=== PATIENT | female | born 1990 | race Caucasian/White ===

== ENCOUNTER → 2018-06-20 12:21 | Outpatient (CLI) | payer BC, SELFPAY ==
[2018-06-20 13:28] LABS: Basophils % 0.2 % (0.1-2.0); Eosinophils # 0.1 K/mm3 (0.0-0.4); Eosinophils % 0.9 % (0.1-12.0); Hematocrit 38.8 % (37.0-47.0); Hemoglobin 12.9 g/dL (12.2-16.2); Lymphocytes # 2.2 K/mm3 (0.7-4.5); Lymphocytes % 20.1 K/mm3 (10-50); Mean Corpuscular HGB Conc 33.2 g/dL (31.8-35.4); Mean Corpuscular Hemoglobin 30.1 pg (27.0-31.2); Mean Corpuscular Volume 90.8 fl (81-99); Mean Platelet Volume 8.2 fl (7.4-10.4); Monocytes # 0.5 K/mm3 (0.1-1.0); Monocytes % 4.1 % (1.7-9.3); Neutrophils # 8.3 K/mm3 (1.8-7.8); Neutrophils % 74.7 % (37.0-80.0); Platelet Count 339 K/mm3 (142-424); Red Blood Count 4.27 M/mm3 (4.20-5.40); Red Cell Distribution Width 13.3 % (11.5-17.5); White Blood Count 11.2 K/mm3 (4.8-10.8)
[2018-06-21 09:16] LABS: Rapid Plasma Reagin Ab Titer Non Reactive (NonRea<1:1)
[2018-06-23 05:30] LABS: HIV Screen 4th Generation wRfx Non Reactive (Non Reactive); Hepatitis B Surface Antigen Negative (Negative); Hepatitis C Antibody 0.1 s/co ratio (0.0-0.9); Rubella Antibodies, IgG 1.81 index (Immune >0.99)
== END ==
PROVIDERS: PCP Family Medicine; Visit Provider Obstetrics & Gynecology
DX: Z34.90 Encounter for supervision of normal pregnancy, unspecified, unspecified trimester (principal)
CPT/HCPCS: 36415; 85025; 86592; 86703; 86762; 86850; 87340; 87380; G0432

== ENCOUNTER → 2018-07-25 12:28 | Outpatient (CLI) | payer BC, SELFPAY ==
--- NOTE | 2018-07-25 12:30 | US_ITS ---
US OB /maternal detail: INDICATION: ITS.REASON: US OB Complete ORDERING PHYSICIAN: Faye Sheets MD PATIENT AGE: 28 years TECHNIQUE: ultrasound transabdominal scanning. COMPARISON: No previous relevant studies. FINDINGS: Single viable intrauterine gestation. Breach position. Placenta: Posterior placenta grade 1. There is normal amount fluid. The cervix appears satisfactory. Closed and measuring 2.59-3.2 in length. Complete survey performed and was unremarkable on the submitted images as in PACS. No discrete anomalies identified on survey imaging by technologist. Active fetus. Three-vessel cord with satisfactory umbilical cord insertion. 4- chamber heart noted. Survey of brain & ventricles. Face and neck survey unremarkable. Diaphragm and chest views unremarkable. Abdomen: Both kidneys noted and unremarkable. Stomach noted and satisfactory. Spine: Survey of the spine satisfactory with no anomalies identified nor imaged. Both arms and legs noted. Amniotic Fluid: Adequate. Maternal adnexa: No significant findings. Measurements: Average ultrasound age 20 weeks and 2 days. Gestational Age 20 weeks 0 days. Estimated due date by ultrasound age 212/12/2018. Estimated weight 353 +/- 52 g grams. BPD = 4.69 centimeters equaling 20 weeks 2 days OFD = 5.95 m equaling 20 weeks 3 days HC = 16.83 cm equaling 19 weeks 4 days AC = 15.33 cm equaling 20 weeks 4 days FL = 3.37 cm equaling 20 weeks 4 days Growth Percentile= Heart Rate = 132 BPM Cerebellum = 1.99 cm equaling 20 weeks and 2 days Humerus = 3.27 cm equaling 21 weeks 1 day HC/AC is 1.10. CI is 79%. FL/BPD is 72%. FL/AC is 22%. IMPRESSION: Active viable breach fetus with details and dates as noted above
== END ==
PROVIDERS: PCP Family Medicine; Visit Provider Obstetrics & Gynecology
DX: Z36.0 Encounter for antenatal screening for chromosomal anomalies (principal)
CPT/HCPCS: 76811

== ENCOUNTER 2018-09-12 09:45 | Outpatient (CLI) | payer BC, SELFPAY ==
[2018-09-12 11:10] VITALS: BP 125/70; PULSE 68; RESP 20; TEMP 36.9; O2SAT 96
== END 2018-09-12 11:40 | disposition home or self-care (01) ==
LOC: LAB 09:46
PROVIDERS: PCP Family Medicine; Visit Provider Obstetrics & Gynecology
DX: Z34.90 Encounter for supervision of normal pregnancy, unspecified, unspecified trimester (principal)
CPT/HCPCS: 36415; 96372; J2790

== ENCOUNTER → 2018-10-09 15:01 | Outpatient (CLI) | payer BC, SELFPAY | PROVIDERS: Visit Provider Obstetrics & Gynecology | DX: Z34.90 Encounter for supervision of normal pregnancy, unspecified, unspecified trimester (principal) | CPT/HCPCS: 87086 ==

== ENCOUNTER → 2018-11-05 14:36 | Outpatient (CLI) | payer BC, SELFPAY ==
--- NOTE | 2018-11-05 14:39 | US_ITS ---
US OB BPP w/Fet-Mat S/D: INDICATION: L G A... Large for gestational age ITS.REASON: US OB BPP Growth SD Ratio ORDERING PHYSICIAN: Faye Sheets MD PATIENT AGE: 28 years TECHNIQUE: ultrasound transabdominal scanning.-/ mw COMPARISON: Ultrasound 07/25/2018.... At which time average ultrasound age 20 weeks 2 days FINDINGS: Single viable intrauterine gestation. Cephalic position.. Placenta. Posterior placenta.grade 1 no previa. The cervix difficult to visualize with low-lying head but appears satisfactory closed & measuring 3.6 cm in length... Appreciated, limited survey performed. Unremarkable on the submitted images as in PACS. & No discrete anomalies identified on survey imaging by technologist. Active fetus.Three-vessel cord with satisfactory umbilical cord insertion. Survey of brain & ventricles & posterior fossa unremarkable Only limited Face and neck survey imaging, unremarkable Diaphragm and chest views unremarkable. 4- chamber heart imaged. Cine loop included. Abdomen: Both kidneys noted and unremarkable. Stomach noted and satisfactory. Spine: Survey of the spine satisfactory with no anomalies identified nor imaged. Both arms and legs noted. Appears to be a Male Fetus Amniotic Fluid: Adequate. Maternal adnexa: No significant findings encountered. Measurements: Average ultrasound age 35 weeks 2 days 34 weeks 5 days. Gestational Age based on LMP 03/07/2018.. Estimated due date by ultrasound age 112/08/2018. Estimated weight 2640 g +/- 386 g grams LMP growth. Percentile 63% (3-97%) BPD = 35 weeks 0 day OFD = 39 week 0 day HC = 35 week 6 day AC = 35 week 6 day FL = 34 week 2 day NOTE when compared to the previous 20 week scan.. The trend curve of the BPD, FL, EFW, AC all appear satisfactory. Graphavailable in PACS... Satisfactory growth progression Heart Rate = 129 BPM. CORTEZ = 12.69. Largest fluid pocket right lower quadrant 3.72 cm. ====== BIOPHYSICAL PROFILE 8 of possible 8 points. +2 scored each category.: Breathing; movement;, Tone,; Amniotic Fluid volume Active fetus with movement and breathing, clearly evident ====== SD RATIO = 2.5 RI = 0.6 HC/AC = 1.0.(1.09-1.26.) CI = 76%.(70-86%). FL/BPD is 77%. WNL FL/AC is 21%. (20-24% The growth progression graphs in PACS are available it appears sac satisfactory with fetus growth remaining near the median. Thesegraphs in include plot of BPD, EFW, FL & AC. Overall satisfactory progress of growth.. IMPRESSION: 35 weeks 2 days average ultrasound age Cephalic position. Placenta is posterior grade 1. No previa Satisfactory growth progression ((when compared to the 20 week 2 day scan performed 07/25/2018) Biophysical profile: 8 of possible 8 points. SD ratio 2.5. CORTEZ 12.89 .. Today's Anatomical survey of unremarkable/satisfactory. Also note There seems to be appropriate in satisfactory progression of growth since the previous ultrasound at 20 weeks 2 days
== END ==
PROVIDERS: PCP Family Medicine; Visit Provider Obstetrics & Gynecology
DX: O99.331 Smoking (tobacco) complicating pregnancy, first trimester (principal); Z87.59 Personal history of other complications of pregnancy, childbirth and the puerperium
CPT/HCPCS: 76811; 76819; 76820

== ENCOUNTER 2018-11-14 01:45 | Outpatient (CLI) | payer BC, SELFPAY ==
[2018-11-14 01:58] VITALS: BMI 42.6
[2018-11-14 02:14] VITALS: BMI 42.6
[2018-11-14 02:15] VITALS: BP 138/65; PULSE 77; RESP 18; TEMP 36.6; O2SAT 95; BMI 42.6
[2018-11-14 02:36] LABS: Appearance,Urine CLEAR (Clear); Bilirubin,Urine Negative (Negative); Blood, Urine 1+ (Negative); Color,Urine YELLOW (Yellow); Glucose,Urine (UA) Negative (Negative); Ketones,Urine Negative (Negative); Leukocyte Esterase,Urine 2+ (Negative); Microscopic, Urine URINE MICROSCOPIC (MICROSCOPIC); Nitrate,Urine Negative (Negative); Protein,Urine 1+ (Negative); Specific Gravity, Urine 1.025 (1.005-1.030); Urobilinogen,Urine 0.2 EU/dl (0.2)
[2018-11-14 02:42] LABS: Fetal Membrane Rupture (Rapid) Negative (Negative)
[2018-11-14 02:45] LABS: Amphetamine/Metha Screen,Urine Negative ng/mL (<1000); Barbiturates Screen,Urine Negative ng/mL (<200); Benzodiazepines Screen,Urine Negative ng/mL (<200); Cannabinoid Screen,Urine Negative ng/mL (<50); Cocaine Screen,Urine Negative ng/mL (<300); Methadone Screen,Urine Negative ng/mL (<300); Opiate Screen,Urine Negative ng/mL (<300); Phencyclidine Screen,Urine Negative ng/mL (<25)
[2018-11-14 02:47] LABS: Bacteria,Urine 1+ /lpf
== END 2018-11-14 03:05 | disposition home or self-care (01) ==
LOC: OBOUT 01:47 → OB 01:48
PROVIDERS: Visit Provider Obstetrics & Gynecology
DX: O26.893 Other specified pregnancy related conditions, third trimester (principal); Z3A.36 36 weeks gestation of pregnancy
CPT/HCPCS: 59025; 80305; 81001; 84112; 87086

== ENCOUNTER 2018-11-14 11:35 | Inpatient (IN) ==
--- NOTE | 2018-11-14 13:01 | History & Physical Report ---
OB - H&P: HPI Antepartum - History of Present Illness Chief complaint: Spontaneous rupture of membranes History of present illness: She is a 28-year-old 3 para 1 aborta 1 who is 36 weeks gestational age. She was seen in the middle the night with what was thought to be her membranes but her aunt was negative. Since that time she has been having leakage and on examination here she is grossly ruptured. Nonstress test is reactive. She is having an occasional correction. She is 2 cm dilated 50% Station -2. She has had a previous vaginal delivery at months with a stillborn infant. - History of Present Criteria for establishing EDC:: LMP confirmed by 1st trimester US care: good care Ultrasounds: normal 1st trimester US, normal mid trimester US Obstetrical complications: none Medical complications: none [facility] History I have reviewed the patient's past medical history: Yes Medical History: Denies:: Anxiety, Depression, Diabetes Mellitus Type 1 Other Surgeries: No: Amputation: No Fractures: No - *Social History Smoking Status: Current some day smoker Tobacco Type: cigarettes # Packs/Day (cigarettes): 1 Alcohol Intake: never Substance Use Type: marijuana Occupational Status: unemployed Housing: apartment Household Members: significant other - Psychiatric History Pschychiatric History:: Denies:: Anxiety, Depression *Family Hx:: No significant family history Review of Systems - Review of Systems Review of systems:: pertinent systems reviewed and negative unless documented below Meds Home Medications Medication Instructions Recorded Confirmed Type 1 tab PO QHS #30 tab 05/12/18 10/23/18 Rx vitamin,calcium,mjojwryf-tjxf-lpkhe acid tablet nitrofurantoin 100 mg PO BID 5 Days #10 cap 11/14/18 Rx monohydrate/macrocrystals 100 mg capsule Allergies Allergy/AdvReac Type Severity Reaction Status Date / Time No Known Allergies Allergy Verified 10/23/18 10:18 OB - H&P: Exam - Constitutional no acute distress - Routine HEENT Exam Head: Present: normocephalic Eye: Present: EOMI, PERRL ENT: Present: mucous membranes moist - Routine Neck Exam Present: supple, full ROM - Routine Respiratory Exam Absent: accessory muscle use (good air entry bilaterally), respiratory distress, wheezes, crackles - Routine Cardiovascular Exam Present: RRR. Absent: murmur - Routine Abdominal Exam Present: soft, normoactive bowel sounds. Absent: tenderness, distended, guarding - Routine Rectal Exam Patient deferred: visual exam, digital exam - Routine Exam Patient deferred: external exam, groin exam, perineal exam - Routine Extremities Exam Present: full ROM. Absent: cyanosis, edema - Routine Skin Exam Present: intact. Absent: cyanosis - Routine Neurological Exam Present: alert, oriented X3 - Routine Psychiatric Exam Present: normal affect OB - A/P Antepartum (1) premature rupture of membranes Current visit: Yes Status: Acute - Additional Plan Planning to breastfeed?: Yes Plan: induction Additional Information:: She is 36 weeks gestation age spontaneous rupture of membranes. We will go ahead and start IV antibiotics since she has not had group B strep testing. We will admit her and deliver her.
[2018-11-14 13:21] LABS: Basophils % 0.2 % (0.1-2.0); Eosinophils # 0.3 K/mm3 (0.0-0.4); Eosinophils % 1.8 % (0.1-12.0); Hematocrit 38.2 % (37.0-47.0); Hemoglobin 12.6 g/dL (12.2-16.2); Lymphocytes # 2.2 K/mm3 (0.7-4.5); Lymphocytes % 15.2 % (10-50); Mean Corpuscular HGB Conc 33.1 g/dL (31.8-35.4); Mean Corpuscular Hemoglobin 31.4 pg (27.0-31.2); Mean Corpuscular Volume 95.1 fl (81-99); Mean Platelet Volume 7.7 fl (7.4-10.4); Monocytes # 0.6 K/mm3 (0.1-1.0); Monocytes % 4.1 % (1.7-9.3); Neutrophils # 11.2 K/mm3 (1.8-7.8); Neutrophils % 78.8 % (37.0-80.0); Platelet Count 414 K/mm3 (142-424); Red Blood Count 4.02 M/mm3 (4.20-5.40); Red Cell Distribution Width 13.8 % (11.5-17.5); White Blood Count 14.1 K/mm3 (4.8-10.8)
[2018-11-14 14:20] VITALS: BP 127/70
--- NOTE | 2018-11-14 18:22 | Progress Note ---
[facility] Anesthesia Checklist - Patient Identification Patient Identification: Arm Band, Verbal (Name & ) - Structural Data Admitted From: Home Planned Operative Procedure/s: Labor Epidural Consent for Planned Operative Procedure(s) Verified: Yes Verified Documents: Surgical Consent, History and Physical - Chart Verification Results Verified: CBC - Additional verifications Patient : Yes Anesthesia Reactions: No - Airway Assessment C-Spine Mobility Assessed: Yes TMJ Mobility Assessed: Yes Dentition: Good Dentition - Neurological Assessment Level of Consciousness: Awake Hx Seizures: No Numbness or tingling in extremities: No - Anesthesia Plan Anesthesia Risk discussed: Yes Anesthesia Plan: Verified ASA Class: II Anesthesia Type: Epidural [facility] History I have reviewed the patient's past medical history: Yes Medical History: Denies:: Anxiety, Depression, Diabetes Mellitus Type 1 Other Surgeries: No: Amputation: No Fractures: No - *Social History Smoking Status: Current every day smoker (hx of use, not during ) Tobacco Type: cigarettes # Packs/Day (cigarettes): 1 Alcohol Intake: never Substance Use Type: marijuana Occupational Status: unemployed Housing: apartment Household Members: significant other - Psychiatric History Pschychiatric History:: Denies:: Anxiety, Depression *Family Hx:: No significant family history Para: 1
--- NOTE | 2018-11-15 00:41 | Procedure Note ---
- Delivery Note Delivery Date:: 11/15/18 Delivery Time:: 12:00 Anesthesia Type: Epidural Was labor medically induced?: Yes Induction method: per pitocin protocol Gestational age (weeks): 36 delivered prior to 39 weeks?: Yes Justification for early elective delivery:: Premature ROM at 1 minute: 6 at 5 minutes: 9 LAC or MLE?: LAC Delivery Procedure:: Vacuum assisted vaginal delivery of liveborn male over intact perineum. Indication for operative vaginal delivery: ineffective maternal pushing with variable decelerations of fetus with pushing Vacuum applied to vertex at +2 station. Infant delivered in single pull using vacuum in standard fashion. Apgars: 6 & 9 Delivery uncomplicated; no shoulder dystocia with delivery. Nuchal cord x 1 reduced on perineum. Infant placed immediately on maternal abdomen for nursing assessment; taken im mediately to warmer for suction and evaluation after umbilical cord clamped/cut Placenta spontaneously expressed and examined; noted to be complete/intact Vulva, vagina, and cervix inspected; second degree perineal and bilateral farhan- urethral lacerations noted. Repair with 2-0 vicryl. EBL: 300cc All sponge/needle/instrument counts correct at conclusion of procedure Disposition: Mom/baby stable to recovery in LDRP Laceration:: vaginal Placental Delivery Description: Spontaneous
--- NOTE | 2018-11-15 14:34 | Progress Note ---
Internal Medicine - PN: Subj *Date: 11/15/18 *Time: 14:32 Interval history: PPD #0 VAVD No complaints Voiding without difficulty Lochia appropriate Pain control sufficient Exam Vital signs and Labs for Last 24 Hours: Temp Pulse Resp BP Pulse Ox 97.3 F L 77 18 127/70 96 11/14/18 12:23 11/14/18 12:23 11/14/18 12:23 11/14/18 12:23 11/14/18 12:23 Laboratory Results - last 24 hr 11/14/18 13:05: Blood Type O Negative I & O for Last 24 hours: Intake & Output 11/13/18 11/14/18 11/15/18 11/16/18 11:59 11:59 11:59 11:59 Weight 264 lb 0.325 oz Narrative: CONSTITUTIONAL: no acute distress HEENT: mucous membranes moist PULMONARY: breathing unlabored without audible wheezes CV: no tachycardia or visible JVD; normal LE peripheral pulses ABD: soft, NT/ND, no guarding : fundus firm at/below umbilicus SKIN: no visible rash or lesions EXT: 1+ edema LEs NEURO: alert/oriented, no altered mental status PSYCH: appropriate mood and demeanor without visible anxiety/depression Assessment and Plan (1) premature rupture of membranes Current visit: Yes Status: Acute Category: Medical Code(s): O42.919 - premature rupture of membranes, unspecified as to length of time between rupture and onset of labor, unspecified trimester (2) Status post vacuum-assisted vaginal delivery Current visit: Yes Status: Acute Category: Medical Code(s): Z87.59 - Personal history of other complications of , childbirth and the puerperium (3) Tobacco use during Current visit: Yes Status: Acute Category: Medical Code(s): O99.330 - Smoking (tobacco) complicating , unspecified trimester (4) UTI in Problem details: Macrobid 100 BID x 7d Current visit: No Status: Acute Category: Medical Code(s): O23.40 - Unspecified infection of urinary tract in , unspecified trimester - Assessment and plan all Dx Assessment and Plan for all problems:: Routine care Continue Macrobid for UTI Tobacco cessation SW consult +UDS during
[2018-11-16 06:51] LABS: Hematocrit 34.3 % (37.0-47.0); Hemoglobin 11.1 g/dL (12.2-16.2)
--- NOTE | 2018-11-16 14:35 | Discharge Summary ---
General - General Admission date:: 11/14/18 Discharge date: 11/16/18 HPI HPI: admitted with PROM @ 35+ VAVD, uncomplicated Routine course Infant being discharged today pending f/u bilirubin level Lochia appropriate Hospital Course Hospital Course: as documented in HPI Rhogam Administration: Not Indicated Objective Vital signs: Temp Pulse Resp BP Pulse Ox 97.3 F L 77 18 127/70 96 11/14/18 12:23 11/14/18 12:23 11/14/18 12:23 11/14/18 12:23 11/14/18 12:23 Narrative: CONSTITUTIONAL: no acute distress HEENT: mucous membranes moist PULMONARY: breathing unlabored without audible wheezes CV: no tachycardia or visible JVD; normal LE peripheral pulses ABD: soft, NT/ND, no guarding : fundus firm at/below umbilicus SKIN: no visible rash or lesions EXT: 1+ edema LEs NEURO: alert/oriented, no altered mental status PSYCH: appropriate mood and demeanor without visible anxiety/depression Results Labs on day of discharge: Labs from last 24 hours 11/16/18 06:40 Hgb 11.1 L Hct 34.3 L DS: Diagnosis - Discharge Diagnosis (1) premature rupture of membranes Status: Acute (2) Status post vacuum-assisted vaginal delivery Status: Acute (3) Tobacco use during Status: Acute (4) UTI in Status: Acute Problem details: Macrobid 100 BID x 7d Discharge Plan - Patient Discharge Instructions Additional Instructions: No heavy lifting, no strenuous activity, nothing in the vagina for 6 weeks. Patient Instructions: Depression, Hemorrhage, Post Discharge Instructions - Follow up Plan Follow up with: Faye Sheets MD [Staff Physician] - Disposition: Home, Self-Usp Medications: Home Medications Medication Instructions Recorded Confirmed Type 1 tab PO QHS #30 tab 05/12/18 11/15/18 Rx vitamin,calcium,uwqiihei-bgzr-oslgd acid tablet Ibuprofen [Motrin 400mg 800 mg PO Q6HP PRN #30 tablet 11/16/18 Rx tablet] Prescriptions/Medication Reconciliation: New Ibuprofen [Motrin 400mg tablet] 800 mg PO Q6HP PRN #30 tablet PRN Reason: Mild To Moderate Pain Continue vitamin,calcium,ciokinke-tmdh-sntev acid tablet 1 tab PO QHS #30 tab
== END 2018-11-16 18:25 | disposition home or self-care (01) | DRG 807 ==
LOC: OBOUT 11:35 → OB 11:37
PROVIDERS: ADMIT Obstetrics & Gynecology; ATTEND Obstetrics & Gynecology
CPT/HCPCS: J0290

== ENCOUNTER 2022-07-20 19:03 | Emergency (ER) | payer BC, SELFPAY ==
[2022-07-20 19:25] VITALS: BP 122/74; PULSE 99; RESP 18; TEMP 37.8; O2SAT 99; BMI 39.1
--- NOTE | 2022-07-20 19:50 | EXP.UTC ---
Discharge Plan Disposition Patient Disposition: Home, Self-Care Condition: Good Prescriptions Prescriptions: No Action prenat.vits,dominick,txf-dzis-xkfjk [ Vitamin] tablet 1 tab PO QHS Qty: 30 10RF Referrals Follow up/Referrals: Jeremiah Guerra [Primary Care Provider] - See instructions Activity Restrictions/Add. Instructions Additional Instructions/Restrictions: Follow up with Dr Guerra if not improving Clinical Impressions Clinical Impression: Bilateral otitis media, Bronchitis Stand Alone Forms Stand Alone Forms: Work/School Release Discharge ED Provider: Yumiko Gillespie [facility] HPI General Stated complaint: congestion,ST Mode of Arrival: Ambulatory Source of Information: Patient Limitations: No Limitations Time Seen by Provider: 07/20/22 19:50 Description of Symptoms (Recalled from Triage Doc. by RN): pt comes in with c/o congestion, headache, nausea, cough. symptoms have been ongoing for 2 days HEENT Symptoms (Recalled from RN notes): Yes Resp Symptoms (Recalled from RN notes): Yes Skin Symptoms (Recalled from RN notes): No MS Symptoms (Recalled from RN notes): No Functional Status (Recalled from RN notes): n/a History of Present Illness Provider Complaint: Cough, congestion, headache X 10 days. Mild ear pain, sore throat. Cough productive of yellow sputum. Has fever. No vomiting or diarrhea. Onset (ago): day(s) (10) Location: chest Consistency: constant Relieving factors: none Exacerbating factors: none Associated symptoms: cough, fever/chills, headaches and shortness of breath Treatments prior to arrival: none Related Data Previous Rx's Medication Instructions Recorded prenat.vits,dominick,uua-kpqb-rjcpj 1 tab PO QHS #30 tabs 05/12/18 ( Vitamin tablet) Allergies Allergy/AdvReac Type Severity Reaction Status Date / Time No Known Allergies Allergy Verified 07/20/22 19:40 Worker's Comp Is this a Worker's Comp case?: No PFSH PFSH Social History Smoking Status: Former smoker alcohol intake: never substance use type: marijuana current occupational status: unemployed Travel in the last 8 weeks: None household members: significant other housing: apartment current occupational exposures/hazards: No ROS Obtained: Yes All systems reviewed & no additional complaints except as documented Constitutional Constitutional: Reports body ache, Reports chills, Reports fatigue, Reports fever(s) and Reports headache(s) ENT Ears, Nose, Mouth, and Throat: Reports headache(s) Respiratory Respiratory: Reports chest congestion and Reports cough Neurologic Neurologic: Reports headache(s) Endocrine Endocrine: Reports fatigue Physical Exam General General appearance: alert and in no apparent distress Head Head exam: atraumatic, normocephalic and normal inspection Eye Eye exam: Present normal appearance, PERRL and EOMI ENT ENT exam: Present normal exam, normal oropharynx, mucous membranes moist and normal external ear exam Expanded ENT Exam TM/Canal exam: Bilateral TM: erythema and bulging Neck Neck exam: Present normal inspection, full ROM and trachea midline; Absent meningismus or lymphadenopathy Chest Chest inspection: Present normal inspection and symmetric chest wall rise; Absent tenderness Respiratory Respiratory exam: Absent respiratory distress Expanded Respiratory Exam Location: Left: rales and rhonchi, Right: rales and rhonchi, Upper: rales and rhonchi and Lower: rales and rhonchi Cardiovascular Cardiovascular exam: Present regular rate and normal rhythm; Absent JVD Abdominal Exam Abdominal exam: Present soft and normal bowel sounds; Absent distention, tenderness or guarding Extremities Exam Extremities exam: Present normal inspection, full ROM and normal capillary refill; Absent calf tenderness Back Exam Back exam: Present normal inspection; Absent tenderness Neurological Exam Neurological exam: Present al
[2022-07-20 20:24] VITALS: BP 122/74; PULSE 99; RESP 18; TEMP 37.5
== END 2022-07-20 20:28 | disposition home or self-care (01) ==
PROVIDERS: Emergency Provider Physician Assistant; PCP Family Medicine
DX: H66.93 Otitis media, unspecified, bilateral (principal); J02.9 Acute pharyngitis, unspecified; R06.02 Shortness of breath; R11.0 Nausea; R51.9 Headache, unspecified; Z79.899 Other long term (current) drug therapy; Z87.891 Personal history of nicotine dependence
CPT/HCPCS: 96372; 99213; G0463; J0696; J1040

== ENCOUNTER 2024-09-29 18:05 | Observation (INO) | payer BC, SELFPAY ==
[2024-09-29] VITALS (8 sets, daily range): BP systolic 109–152; BP diastolic 67–104; PULSE 72–115; RESP 18–20; TEMP 36.6–37.2; O2SAT 95–98; BMI 45.1
--- NOTE | 2024-09-29 18:10 | ED_ITS ---
Discharge Plan Disposition Patient Disposition: Admitted Condition: Fair Clinical Impressions Clinical Impression: Sepsis without septic shock Discharge ED Provider: Moise Pitt General Adult HPI <ABIOLA Mcpherson - Last Filed: 09/29/24 19:50> General Chief complaint: Upper Respiratory Infection Stated complaint: sore throat, ST Time Seen by Provider: 09/29/24 18:10 History of Present Illness HPI narrative: Patient presents for evaluation of cough malaise myalgia and headache. Patient states that she began having symptoms on Saturday however it is progressed to having a persistent headache persistent malaise that is refractory to home remedies including Tylenol and liquid cough cold medicine. She denies cardiac chest pain shortness of breath dyspnea cough but reports a significant sore throat with difficulty swallowing as it is painful. Related Data Previous Rx's ?Medication ?Instructions ?Recorded prenat.vits,dominick,[id number] 1 tab PO QHS #30 tabs 05/12/18 ( Vitamin tablet) Allergies Allergy/AdvReac Type Severity Reaction Status Date / Time No Known Allergies Allergy Verified 07/20/22 19:40 PFSH <ABIOLA Mcpherson - Last Filed: 09/29/24 19:50> [facility] Disclaimer: The information contained in this section may have been updated after the patient was seen, as this information can be updated by other users. Medical History Bronchitis Bilateral otitis media History of chlamydia Hidradenitis suppurativa Positive urine drug screen History of IUFD Smoking (tobacco) complicating , first trimester Annual physical exam Family History (Updated 09/29/24 @ 22:14 by Yris Roberts RN) Other Brain cancer Family history of cancer Family history of diabetes mellitus type I Family history of myocardial infarction Social History (Updated 09/29/24 @ 22:16 by Yris Roberts RN) Smoking Status: Current every day smoker tobacco type: cigarettes packs per day: 1 alcohol intake: never substance use type: marijuana current occupational status: unemployed Travel in the last 8 weeks: None household members: significant other housing: apartment current occupational exposures/hazards: No Other Medical History Have you received the Flu Vaccine for this season: Yes Have you received the Pneumonia Vaccine: No <ABIOLA Mcpherson - Last Filed: 09/29/24 19:50> ROS Obtained: Yes Systems reviewed as appropriate & no additional complaints except as documented Physical Exam <ABIOLA Mcpherson - Last Filed: 09/29/24 19:50> General General appearance: alert and in no apparent distress Respiratory Respiratory exam: Present normal lung sounds bilaterally Cardiovascular Cardiovascular exam: Present tachycardia Neurological Exam Neurological exam: Present alert and oriented X3 Medical Decision Making <ABIOLA Mcpherson - Last Filed: 09/29/24 19:50> Medical Records Medical records reviewed: Yes I reviewed the patient's medical records. Screening: Per USPSTF and CDC recommendations, given the prevalence of disease in our region, it is our hospital?s policy to screen for HIV and viral Hepatitis for all patients aged 18 and over and those with ongoing risk factors. Jose Inquiry Pt receiving controlled substance: No Vital Signs: 09/29/24 18:07 09/29/24 18:33 09/29/24 19:01 Temperature 99.0 F Temperature Source Oral Pulse Rate 103 H 108 H Pulse Rate [Right] 115 H Respiratory Rate 20 Blood Pressure 139/91 H 112/72 Blood Pressure [Right Arm] 152/104 H Blood Pressure Mean [Right Arm] 120 Blood Pressure Source Blood Pressure Source [Right Arm] Blood Pressure Position 02 Sat by Pulse Oximetry 95 96 96 Oxygen Delivery Method Room Air Room Air Room Air 09/29/24 19:32 09/29/24 20:03 09/29/24 20:15 Temperature 98.9 F Temperature Source Oral Pulse Rate 104 H 111 H Pulse Rate [Right] 93 H Respiratory Rate 20 Blood Pressure 115/75 109/67 L Blood Pressure [Right Arm] 115/79 Blood Pressure Mean [Right Arm] 91 Blood Pressure Source Blood Pressure Source [Right Arm] Automatic Cuff Blood Pressure Position 02 Sat by Pulse Oximetry 97 97 96 Oxygen Delivery Method Room Air 09/29/24 20:31 09/29/24 20:37 Temperature 97.9 F Temperature Source Oral Pulse Rate 96 H 72 Pulse Rate [Right] Respiratory Rate 18 Blood Pressure 115/79 122/74 Blood Pressure [Right Arm] Blood Pressure Mean [Right Arm] Blood Pressure Source Automatic Cuff Blood Pressure Source [Right Arm] Blood Pressure Position Supine 02 Sat by Pulse Oximetry 96 Oxygen Delivery Method Room Air Lab Data Lab results reviewed: Yes I reviewed the patient's lab results. Lab Results 09/29/24 18:20: SARS-CoV-2 (PCR) Not detected, Influenza A Untype (PCR) Not detected, Influenza Type B (PCR) Not detected, Group A Strep Rapid Negative 09/29/24 18:23: WBC 22.4 H*, RBC 4.99, Hgb 15.2, Hct 45.6, MCV 91.3, MCH 30.5, MCHC 33.4, RDW 14.3, Plt Count 356, MPV 7.0 L, Neut % (Auto) 81.8 H, Lymph % (Auto) 10.6, [place] % (Auto) 5.9, Eos % (Auto) 1.1, Baso % (Auto) 0.6, Neut # (Auto) 18.4 H, Lymph # (Auto) 2.4, [place] # (Auto) 1.3 H, Eos # (Auto) 0.2, Baso # (Auto) 0.1, Total Counted 100, Neutrophils % (Manual) 74, Band Neutrophils % 3.0, Lymphocytes % (Manual) 11, Monocytes % (Manual) 9, Eosinophils % (Manual) 1, Basophils % (Manual) 2.0 H, Platelet Estimate Normal, Giant Platelets 1+, RBC Morphology Normal, Sodium 139, Potassium 4.1, Chloride 103, Carbon Dioxide 28, Anion Gap 12.1, BUN 7, Creatinine 0.90, Estimated Creat Clear 82, Estimated GFR 71, Est GFR ( Amer) 86, Glucose 118 H, Calcium 9.3, Total Bilirubin 0.7, AST 26, ALT 31, Alkaline Phosphatase 131 H, Total Protein 8.1, Albumin 4.3, G lobulin 3.8 H, Albumin/Globulin Ratio 1.1, Procalcitonin 0.168, Serum HCG, Qual Negative, Monoscreen Negative 09/29/24 19:08: Urine Color Yellow, Urine Appearance Clear, Urine pH 6.0, Ur Specific [place] >= 1.030, Urine Protein Trace, Urine Glucose (UA) Negative, Urine Ketones 1+, Urine Blood 2+ A, Urine Nitrate Negative, Urine Bilirubin Negative, Urine Urobilinogen 1.0, Ur Leukocyte Esterase Negative, Urine RBC 20- 50, Urine WBC 20-50, Ur Squamous Epith Cells 50-100, Urine Bacteria 4+ 09/29/24 18:23 09/29/24 18:23 Orders (Tests/Meds): ED MEDICATIONS Generic Name Dose Route Start Last Admin Trade Name Freq PRN Reason Stop Dose Admin Acetaminophen 650 mg 09/29/24 20:15 Acetaminophen 325mg Tab PO 10/29/24 20:14 Q4HP PRN Fever or Mild Pain (1-3) Sodium Chloride 1,000 mls @ 100 mls/hr 09/29/24 20:15 09/29/24 22:30 Sod Chlor 0.9% 1000ml Bag IV 10/29/24 20:14 100 mls/hr .Q10H BIJU Administration Ketorolac Tromethamine 30 mg 09/29/24 20:15 Ketorolac 30mg/Ml Vial IV 10/04/24 20:14 Q8HP PRN Moderate Pain (4-6) Ondansetron HCl 4 mg 09/29/24 20:15 Ondansetron 4mg/2ml Vial IV 10/29/24 20:14 Q8HP PRN Nausea Pantoprazole Sodium 40 mg 09/29/24 21:00 09/29/24 22:30 Pantoprazole 40mg Tablet PO 10/29/24 20:59 40 mg HS BIJU Administration Discontinued Medications Generic Name Dose Route Start Last Admin Trade Name Freq PRN Reason Stop Dose Admin Acetaminophen 1,000 mg 09/29/24 18:19 09/29/24 18:28 Acetaminophen 1,000mg/100ml Vial IV 09/29/24 18:20 1,000 mg ONCE ONE Administration Sodium Chloride 1,000 mls @ 999 mls/hr 09/29/24 18:19 09/29/24 18:28 Sod Chlor 0.9% 1000ml Bag IV 09/29/24 19:19 999 mls/hr .Q1H1M ONE Administration Azithromycin 500 mg/ Sodium 250 mls @ 250 mls/hr 09/29/24 20:00 09/29/24 20:24 Chloride IV 09/29/24 20:59 250 mls/hr ONCE ONE Administration Ceftriaxone Sodium 1 gm/ 50 mls @ 100 mls/hr 09/29/24 20:00 09/29/24 19:56 Sodium Chloride IV 09/29/24 20:29 100 mls/hr ONCE ONE Administration Ketorolac Tromethamine 15 mg 09/29/24 18:19 09/29/24 18:28 Ketorolac 30mg/Ml Vial IV 09/29/24 18:20 15 mg ONCE ONE Administration ORDERS Category Date Time Status Chest XR 2 view (NOT portable) [XR chest 2V] Stat Exams 09/29/24 18:20 Completed CBC w/Auto Diff [Complete Blood Count Auto Diff] Stat Lab 09/29/24 18:23 Completed CMP [Comprehensive Metabolic Panel] Stat Lab 09/29/24 18:23 Completed Complete Blood Count Auto Diff AMLAB Lab 09/30/24 06:00 Ordered HCG Qualitative, Serum Stat Lab 09/29/24 18:23 Completed Lactic Acid AMLAB Lab 09/30/24 06:00 Ordered Magnesium AMLAB Lab 09/30/24 06:00 Ordered Monoscreen (Rapid) Stat Lab 09/29/24 18:23 Completed Procalcitonin Stat Lab 09/29/24 18:23 Completed Rapid PCR Covid and Flu A/B Stat Lab 09/29/24 18:20 Completed Rapid Strep Scrn Group A [Strep Scrn Group A (Rapid)] Lab 09/29/24 18:20 Completed Stat UA [Urinalysis and Microscopic] Stat Lab 09/29/24 19:08 Completed Blood Culture Stat Micro 09/29/24 18:53 Received Strep Screen Confirmation Stat Micro 09/29/24 18:20 Received Urine Culture Stat Micro 09/29/24 19:08 Received Tissue Perfus/Sepsis Re-Eval Date Performed: 09/29/24 Time Performed: 18:56 Medical Decision Narrative: In summary patient is a 34-year-old female who presents to the emergency department for evaluation of headache myalgias and malaise. Patient is initially normotensive with a blood pressure 152/104 tachycardic at 115 breathing 20 times a minute with O2 sat of 95% upon arrival, with a temperature of 99.0. Physical exam is remarkable for anterior cervical lymphadenopathy, erythematous posterior pharynx but no definitive exudate, clear breath sounds, sinus tachycardia on the bedside monitor, no nuchal rigidity [place] Coma Score 15 patient is awake alert and oriented no meningeal signs. Differential diagnosis includes viral bacterial upper respiratory tract infection versus pneumonia etc. Initial workup will be conducted with hematologic labs COVID and flu swabs plain film chest x-ray. Initial interventions include crystalloid bolus Tylenol Toradol. Initial workup reviewed by me show patient has a white count of 22,000 with a left shift however the remainder of her laboratory vesication's are nonactionable including negative strep COVID flu and mono swabs. My informal interpretation of her plain film chest x-ray shows no acute processes prior to radiology read. Her urinalysis is contaminated with 50-100 epithelial cells but there is 4+ bacteria but patient has no urinary symptoms. Upon repeat evaluation patient reports significant improvement in her headache however she is still tachycardic at 104 still has low-grade fever of 99. Given this I have had an interactive discussion with hospital medicine about patient management and she will be admitted for further evaluation and care <Moise Pitt MD - Last Filed: 09/29/24 23:24> Vital Signs: 09/29/24 18:07 09/29/24 18:33 09/29/24 19:01 Temperature 99.0 F Temperature Source Oral Pulse Rate 103 H 108 H Pulse Rate [Right] 115 H Respiratory Rate 20 Blood Pressure 139/91 H 112/72 Blood Pressure [Right Arm] 152/104 H Blood Pressure Mean [Right Arm] 120 Blood Pressure Source Blood Pressure Source [Right Arm] Blood Pressure Position 02 Sat by Pulse Oximetry 95 96 96 Oxygen Delivery Method Room Air Room Air Room Air 09/29/24 19:32 09/29/24 20:03 09/29/24 20:15 Temperature 98.9 F Temperature Source Oral Pulse Rate 104 H 111 H Pulse Rate [Right] 93 H Respiratory Rate 20 Blood Pressure 115/75 109/67 L Blood Pressure [Right Arm] 115/79 Blood Pressure Mean [Right Arm] 91 Blood Pressure Source Blood Pressure Source [Right Arm] Automatic Cuff Blood Pressure Position 02 Sat by Pulse Oximetry 97 97 96 Oxygen Delivery Method Room Air 09/29/24 20:31 09/29/24 20:37 Temperature 97.9 F Temperature Source Oral Pulse Rate 96 H 72 Pulse Rate [Right] Respiratory Rate 18 Blood Pressure 115/79 122/74 Blood Pressure [Right Arm] Blood Pressure Mean [Right Arm] Blood Pressure Source Automatic Cuff Blood Pressure Source [Right Arm] Blood Pressure Position Supine 02 Sat by Pulse Oximetry 96 Oxygen Delivery Method Room Air Lab Data Lab Results 09/29/24 18:20: SARS-CoV-2 (PCR) Not detected, Influenza A Untype (PCR) Not detected, Influenza Type B (PCR) Not detected, Group A Strep Rapid Negative 09/29/24 18:23: WBC 22.4 H*, RBC 4.99, Hgb 15.2, Hct 45.6, MCV 91.3, MCH 30.5, MCHC 33.4, RDW 14.3, Plt Count 356, MPV 7.0 L, Neut % (Auto) 81.8 H, Lymph % (Auto) 10.6, [place] % (Auto) 5.9, Eos % (Auto) 1.1, Baso % (Auto) 0.6, Neut # (Auto) 18.4 H, Lymph # (Auto) 2.4, [place] # (Auto) 1.3 H, Eos # (Auto) 0.2, Baso # (Auto) 0.1, Total Counted 100, Neutrophils % (Manual) 74, Band Neutrophils % 3.0, Lymphocytes % (Manual) 11, Monocytes % (Manual) 9, Eosinophils % (Manual) 1, Basophils % (Manual) 2.0 H, Platelet Estimate Normal, Giant Platelets 1+, RBC Morphology Normal, Sodium 139, Potassium 4.1, Chloride 103, Carbon Dioxide 28, Anion Gap 12.1, BUN 7, Creatinine 0.90, Estimated Creat Clear 82, Estimated GFR 71, Est GFR ( Amer) 86, Glucose 118 H, Calcium 9.3, Total Bilirubin 0.7, AST 26, ALT 31, Alkaline Phosphatase 131 H, Total Protein 8.1, Albumin 4.3, G lobulin 3.8 H, Albumin/Globulin Ratio 1.1, Procalcitonin 0.168, Serum HCG, Qual Negative, Monoscreen Negative 09/29/24 19:08: Urine Color Yellow, Urine Appearance Clear, Urine pH 6.0, Ur Specific [place] >= 1.030, Urine Protein Trace, Urine Glucose (UA) Negative, Urine Ketones 1+, Urine Blood 2+ A, Urine Nitrate Negative, Urine Bilirubin Negative, Urine Urobilinogen 1.0, Ur Leukocyte Esterase Negative, Urine RBC 20- 50, Urine WBC 20-50, Ur Squamous Epith Cells 50-100, Urine Bacteria 4+ Orders (Tests/Meds): ED MEDICATIONS Generic Name Dose Route Start Last Admin Trade Name Freq PRN Reason Stop Dose Admin Acetaminophen 650 mg 09/29/24 20:15 Acetaminophen 325mg Tab PO 10/29/24 20:14 Q4HP PRN Fever or Mild Pain (1-3) Sodium Chloride 1,000 mls @ 100 mls/hr 09/29/24 20:15 09/29/24 22:30 Sod Chlor 0.9% 1000ml Bag IV 10/29/24 20:14 100 mls/hr .Q10H BIJU Administration Ketorolac Tromethamine 30 mg 09/29/24 20:15 Ketorolac 30mg/Ml Vial IV 10/04/24 20:14 Q8HP PRN Moderate Pain (4-6) Ondansetron HCl 4 mg 09/29/24 20:15 Ondansetron 4mg/2ml Vial IV 10/29/24 20:14 Q8HP PRN Nausea Pantoprazole Sodium 40 mg 09/29/24 21:00 09/29/24 22:30 Pantoprazole 40mg Tablet PO 10/29/24 20:59 40 mg HS BIJU Administration Discontinued Medications Generic Name Dose Route Start Last Admin Trade Name Freq PRN Reason Stop Dose Admin Acetaminophen 1,000 mg 09/29/24 18:19 09/29/24 18:28 Acetaminophen 1,000mg/100ml Vial IV 09/29/24 18:20 1,000 mg ONCE ONE Administration Sodium Chloride 1,000 mls @ 999 mls/hr 09/29/24 18:19 09/29/24 18:28 Sod Chlor 0.9% 1000ml Bag IV 09/29/24 19:19 999 mls/hr .Q1H1M ONE Administration Azithromycin 500 mg/ Sodium 250 mls @ 250 mls/hr 09/29/24 20:00 09/29/24 20:24 Chloride IV 09/29/24 20:59 250 mls/hr ONCE ONE Administration Ceftriaxone Sodium 1 gm/ 50 mls @ 100 mls/hr 09/29/24 20:00 09/29/24 19:56 Sodium Chloride IV 09/29/24 20:29 100 mls/hr ONCE ONE Administration Ketorolac Tromethamine 15 mg 09/29/24 18:19 09/29/24 18:28 Ketorolac 30mg/Ml Vial IV 09/29/24 18:20 15 mg ONCE ONE Administration ORDERS Category Date Time Status Chest XR 2 view (NOT portable) [XR chest 2V] Stat Exams 09/29/24 18:20 Completed CBC w/Auto Diff [Complete Blood Count Auto Diff] Stat Lab 09/29/24 18:23 Completed CMP [Comprehensive Metabolic Panel] Stat Lab 09/29/24 18:23 Completed Complete Blood Count Auto Diff AMLAB Lab 09/30/24 06:00 Ordered HCG Qualitative, Serum Stat Lab 09/29/24 18:23 Completed Lactic Acid AMLAB Lab 09/30/24 06:00 Ordered Magnesium AMLAB Lab 09/30/24 06:00 Ordered Monoscreen (Rapid) Stat Lab 09/29/24 18:23 Completed Procalcitonin Stat Lab 09/29/24 18:23 Completed Rapid PCR Covid and Flu A/B Stat Lab 09/29/24 18:20 Completed Rapid Strep Scrn Group A [Strep Scrn Group A (Rapid)] Lab 09/29/24 18:20 Completed Stat UA [Urinalysis and Microscopic] Stat Lab 09/29/24 19:08 Completed Blood Culture Stat Micro 09/29/24 18:53 Received Strep Screen Confirmation Stat Micro 09/29/24 18:20 Received Urine Culture Stat Micro 09/29/24 19:08 Received Medical Decision Narrative: In summary patient is a 34-year-old female who presents to the emergency department for evaluation of headache myalgias and malaise. Patient is initially normotensive with a blood pressure 152/104 tachycardic at 115 breathing 20 times a minute with O2 sat of 95% upon arrival, with a temperature of 99.0. Physical exam is remarkable for anterior cervical lymphadenopathy, erythematous posterior pharynx but no definitive exudate, clear breath sounds, sinus tachycardia on the bedside monitor, no nuchal rigidity [place] Coma Score 15 patient is awake alert and oriented no meningeal signs. Differential diagnosis includes viral bacterial upper respiratory tract infection versus pneumonia etc. Initial workup will be conducted with hematologic labs COVID and flu swabs plain film chest x-ray. Initial interventions include crystalloid bolus Tylenol Toradol. Initial workup reviewed by me show patient has a white count of 22,000 with a left shift however the remainder of her laboratory vesication's are nonactionable including negative strep COVID flu and mono swabs. My informal interpretation of her plain film chest x-ray shows no acute processes prior to radiology read. Her urinalysis is contaminated with 50-100 epithelial cells but there is 4+ bacteria but patient has no urinary symptoms. Upon repeat evaluation patient reports significant improvement in her headache however she is still tachycardic at 104 still has low-grade fever of 99. Given this I have had an interactive discussion with hospital medicine about patient management and she will be admitted for further evaluation and care I was consulted by the JEROD, and we discussed the complexity of the problems being addressed. I approve the treatment and management plan for this patient's care in the emergency department, thus performing a substantive portion of the medical decision making. Moise Claire MD Critical Care <ABIOLA Mcpherson - Last Filed: 09/29/24 19:50> Critical Care Time Critical Care Time: No
--- NOTE | 2024-09-29 18:20 | XR_ITS ---
PROCEDURE INFORMATION: Exam: XR Chest Exam date and time: 09/29/2024 6:32 PM Age: 34 years old Clinical indication: Fever; Additional info: Fever tachycardia TECHNIQUE: Imaging protocol: Radiologic exam of the chest. Views: 2 views. COMPARISON: No relevant prior studies available. FINDINGS: Lungs: Unremarkable. No consolidation. Pleural spaces: Unremarkable. No pleural effusion. No pneumothorax. Heart/Mediastinum: Unremarkable. No cardiomegaly. Bones/joints: Unremarkable. IMPRESSION: No acute findings.
--- NOTE | 2024-09-29 18:24 | ECG_ITS ---
APPROVED REPORT Exam: Resting ECG HR:110 bpm ECG Measurements Heart Rate 110 AXES ND 141 P 46 QRSd 77 QRS 18 QT 322 T 54 QTc 387 Conclusion SINUS TACHYCARDIA NONSPECIFIC ST & T-WAVE ABNORMALITY ABNORMAL RHYTHM ECG Electronically signed by : ARINA MATA, 10/01/2024 07:37:23
[2024-09-29 18:26] LABS: Coronavirus 19, PCR Not Detected (NotDetected); Influenza A, PCR Not Detected (NotDetected); Influenza B, PCR Not Detected (NotDetected)
[2024-09-29] MEDS: ACETAMINOPHEN 1,000MG/100ML VIAL 1000 MG IV (18:28)
[2024-09-29] MEDS: KETOROLAC 30MG/ML VIAL 15 MG IV (18:28)
[2024-09-29] MEDS: 0.9 % SODIUM CHLORIDE 1000ML 1,000 ML 999 ML IV (18:28)
[2024-09-29 18:31] LABS: Basophils # 0.1 K/mm3 (0-0.2); Basophils % 0.6 % (0.1-2.0); Eosinophils # 0.2 K/mm3 (0.0-0.4); Eosinophils % 1.1 % (0.1-12.0); Hematocrit 45.6 % (37.0-47.0); Hemoglobin 15.2 g/dL (12.2-16.2); Lymphocytes # 2.4 K/mm3 (0.7-4.5); Lymphocytes % 10.6 % (10-50); Mean Corpuscular HGB Conc 33.4 g/dL (31.8-35.4); Mean Corpuscular Hemoglobin 30.5 pg (27.0-31.2); Mean Corpuscular Volume 91.3 fl (81-99); Monocytes # 1.3 K/mm3 (0.1-1.0); Monocytes % 5.9 % (1.7-9.3); Neutrophils # 18.4 K/mm3 (1.8-7.8); Neutrophils % 81.8 % (37.0-80.0); Platelet Count 356 K/mm3 (142-424); Red Blood Count 4.99 M/mm3 (4.20-5.40); Red Cell Distribution Width 14.3 % (11.5-17.5); White Blood Count 22.4 K/mm3 (4.8-10.8)
[2024-09-29 18:34] LABS: Strep Scrn Group A (Rapid) Negative (Negative)
[2024-09-29 18:40] LABS: Alanine Aminotransferase 31 U/L (12-78); Albumin Level 4.3 g/dl (3.5-5.0); Albumin/Globulin Ratio 1.1 (1.1-1.8); Alkaline Phosphatase 131 U/L (38-126); Anion Gap 12.1 mEq/L (5-15); Aspartate Amino Transferase 26 U/L (14-36); Bilirubin,Total 0.7 mg/dl (0.2-1.3); Blood Urea Nitrogen 7 mg/dl (7-17); Calcium 9.3 mg/dl (8.4-10.2); Carbon Dioxide 28 mmol/L (22.0-30.0); Chloride 103 mmol/L (98-107); Creatinine Clearance Estimated 82 mL/min (50-200); Estimated Glomerular Filt Rate 71 ml/min (>60); GFR (African American) 86 ML/MIN (>60); Globulin 3.8 g/dL (1.3-3.2); Glucose 118 mg/dl (74-100); MANUAL DIFFERENTIAL MANUAL DIFFERENTIAL (MANUAL DIFF); Potassium 4.1 mmoL/L (3.5-5.1); Sodium 139 mmol/L (136-145); Total Protein,Serum 8.1 g/dl (6.3-8.2)
[2024-09-29 19:02] LABS: Monoscreen (Rapid) Negative (Negative)
[2024-09-29 19:12] LABS: Microscopic, Urine URINE MICROSCOPIC (MICROSCOPIC)
[2024-09-29 19:14] LABS: Appearance,Urine CLEAR (Clear); Blood, Urine 2+ (Negative); Color,Urine YELLOW (Yellow); Glucose,Urine (UA) Negative (Negative); Ketones,Urine 1+ (Negative); Leukocyte Esterase,Urine Negative (Negative); Nitrate,Urine Negative (Negative); Protein,Urine TRACE (Negative); Specific Gravity, Urine >= 1.030 (1.005-1.030)
[2024-09-29 19:15] LABS: Bilirubin,Urine Negative (Negative)
[2024-09-29 19:18] LABS: Procalcitonin 0.168 ng/mL (0.0-2.0)
[2024-09-29 19:35] LABS: Bacteria,Urine 4+ /lpf; RBC,Urine 20-50 #/hpf (0-3); Squamous Epithelial Cell,Urine 50-100 #/hpf (0-5); WBC,Urine 20-50 #/hpf (0-3)
[2024-09-29] MEDS: CEFTRIAXONE 1 GM 1 GM in 0.9 % SODIUM CHLORIDE 50 ML IV (19:56)
[2024-09-29 20:23] LABS: HCG Qualitative, Serum Negative (Negative)
[2024-09-29] MEDS: AZITHROMYCIN 500 MG in 0.9 % SODIUM CHLORIDE 250 ML 250 MG IV (20:24)
--- NOTE | 2024-09-29 20:26 | P.HP_ITS ---
History of Present Illness *Admission Date: 09/29/24 *Reason for visit:: Sore throat fatigue tachycardia *History of present illness: This is a 34-year-old female has come in with her and her elementary school child.. She noted that the child was positive for strep and pinkeye bet ween 1 to 2 weeks ago.. He is now resolved reports no illness. Mother reports today gradually increasing sore throat to the point giving her trouble to swallow. Feeling bad all over with malaise She has come to the ER to be examined., ER provider notes that the throat is red but there is no exudate at this time. But was concerned because the white count was greater than 20,000 heart rate up around 115. Blood pressure was acceptable. Workup did not find source of infection.. Present strep swab was negative culture has been sent. Patient is receiving IV fluids which has helped also IV acetaminophen which she says is helping her sore throat, and her significant headache is now much improved. And heart rate is now 105 after receiving half a liter of saline. ER provider is very concerned that they have not been able to find the source of the infection and with the elevated white count felt she need to be monitored overnight. This is reasonable so I will place her on the floor in observation she will have received a dose of Rocephin I will continue with slow rehydration with normal saline and evaluate the patient in the morning. [facility] Disclaimer: The information contained in this section may have been updated after the patient was seen, as this information can be updated by other users. Medical History Bronchitis Bilateral otitis media History of chlamydia Hidradenitis suppurativa Positive urine drug screen History of IUFD Smoking (tobacco) complicating , first trimester Annual physical exam Family History (Updated 09/29/24 @ 22:14 by Yris Roberts RN) Other Brain cancer Family history of cancer Family history of diabetes mellitus type I Family history of myocardial infarction Social History (Updated 09/29/24 @ 22:16 by Yris Roberts RN) Smoking Status: Current every day smoker tobacco type: cigarettes packs per day: 1 alcohol intake: never substance use type: marijuana current occupational status: unemployed Travel in the last 8 weeks: None household members: significant other housing: apartment current occupational exposures/hazards: No Other Medical History Have you received the Flu Vaccine for this season: Yes Have you received the Pneumonia Vaccine: No Review of Systems Review of Systems Review of systems:: pertinent systems reviewed and negative unless documented below Constitutional Constitutional: Reports as per HPI and Reports headache(s) Eyes Eyes: Reports as per HPI ENT Ears, Nose, Mouth, and Throat: Reports as per HPI, Reports dysphagia, Reports headache(s), Reports odynophagia, Reports sore throat and Reports throat swelling Comments: Examination of the oropharynx tonsils were not terribly enlarged there was no exudate noted erythema is noted tongue is of normal size did not see any postnasal drainage *Cardiovascular Cardiovascular: Reports as per HPI and Reports rapid heart rate *Respiratory Respiratory: Reports as per HPI Comments: Patient denies having a cough or other respiratory issues *Gastrointestinal Gastrointestinal: Reports dysphagia and Reports odynophagia *Genitourinary Genitourinary: Reports as per HPI *Musculoskeletal Musculoskeletal: Reports as per HPI Integumentary/Breasts Skin/Breast: Reports as per HPI *Neurologic Neurologic: Reports as per HPI and Reports headache(s) Comments: Patient reported no weakness, only having very severe headache, denied any neck rigidity Endocrine Endocrine: Reports as per HPI Hematologic/Lymphatic Hematologic/Lymphatic: Reports as per HPI Allergic/Immunologic Allergic/Immunologic: Reports as per HPI and Reports throat swelling Meds Home Medications and Allergies Home Medications ?Medication ?Instructions ?Recorded ?Confirmed ?Type melatonin 5 mg tablet 5 mg PO HSP PRN Sleep 09/29/24 09/30/24 History acetaminophen 325 mg tablet 650 mg (2 x 325 mg) PO Q4HP PRN 09/30/24 Rx Fever Or Mild Pain (1-3) #0 tabs New Prescriptions to Start Prescriptions: Allergies Allergy/AdvReac Type Severity Reaction Status Date / Time No Known Allergies Allergy Verified 07/20/22 19:40 Exam Data for Last 24 hours Vital signs and Labs for Last 24 Hours: Temp Pulse Resp BP Pulse Ox O2 Del Method 99.0 F 111 H 20 109/67 L 97 Room Air 09/29/24 18:07 09/29/24 20:03 09/29/24 18:07 09/29/24 20:03 09/29/24 20:03 09/29/24 19:01 Laboratory Results - last 24 hr 09/29/24 18:20: SARS-CoV-2 (PCR) Not detected, Influenza A Untype (PCR) Not detected, Influenza Type B (PCR) Not detected, Group A Strep Rapid Negative 09/29/24 18:23: WBC 22.4 H*, RBC 4.99, Hgb 15.2, Hct 45.6, MCV 91.3, MCH 30.5, MCHC 33.4, RDW 14.3, Plt Count 356, MPV 7.0 L, Neut % (Auto) 81.8 H, Lymph % (Auto) 10.6, [place] % (Auto) 5.9, Eos % (Auto) 1.1, Baso % (Auto) 0.6, Neut # (Auto) 18.4 H, Lymph # (Auto) 2.4, [place] # (Auto) 1.3 H, Eos # (Auto) 0.2, Baso # (Auto) 0.1, Sodium 139, Potassium 4.1, Chloride 103, Carbon Dioxide 28, Anion Gap 12.1, BUN 7, Creatinine 0.90, Estimated Creat Clear 82, Estimated GFR 71, Est GFR ( Amer) 86, Glucose 118 H, Calcium 9.3, Total Bilirubin 0.7, AST 26, ALT 31, Alkaline Phosphatase 131 H, Total Protein 8.1, Albumin 4.3, Globulin 3.8 H, Albumin/Globulin Ratio 1.1, Procalcitonin 0.168, Serum HCG, Qual Negative, Monoscreen Negative 09/29/24 19:08: Urine Color Yellow, Urine Appearance Clear, Urine pH 6.0, Ur Specific [place] >= 1.030, Urine Protein Trace, Urine Glucose (UA) Negative, Urine Ketones 1+, Urine Blood 2+ A, Urine Nitrate Negative, Urine Bilirubin Negative, Urine Urobilinogen 1.0, Ur Leukocyte Esterase Negative, Urine RBC 20- 50, Urine WBC 20-50, Ur Squamous Epith Cells 50-100, Urine Bacteria 4+ I & O for Last 24 hours: Intake & Output 09/27/24 09/28/24 09/29/24 09/30/24 05:59 05:59 05:59 05:59 Weight 280 lb Radiology Reports for the Last 24 Hours: Chest x-ray no acute finding Constitutional Constitutional: mild distress and morbidly obese Comments: From report patient has improved about 50% after receiving the IV acetaminophen as far as pain and headache, *Routine HEENT Exam Head: Present normocephalic and atraumatic Eye: Present EOMI, PERRL and normal accommodation ENT: Present mucous membranes moist Comments: Examination of the posterior pharynx showed no exudate tonsils are not terribly enlarged airway appears to be open Mallampati 3 *Routine Neck Exam Neck: Present supple and full ROM Comments: Examination of the neck found no rigidity no lymphadenopathy no enlarged tonsillar nodes were palpated Routine Chest/Breast/Axilla Exam Comments: Patient denies any pain on deep breath equal expansion no sign of injury or tenderness *Routine Respiratory Exam Respiratory: Present CTA bilaterally, normal respiratory effort, able to speak in complete sentences and symmetric chest movement *Routine Cardiovascular Exam Cardiovascular: Present RRR, Normal S1, Normal S2 and tachycardia *Routine Abdominal Exam Abdominal: Present soft Comments: There was no abdominal pain on exam *Routine Rectal Exam Rectal:: deferred *Routine Genitalia Exam Genitalia:: deferred *Routine Extremities Exam Extremities: Present full ROM Comments: Normal extremity exam no decrease in range of motion of any joints no swollen joints. Patient is able to stand sit move without assistance Routine Back/Spine/Pelvis Exam Back/Spine: Present full ROM Comments: Normal back exam there is no tenderness no signs of injury patient is able to stand straight without any difficulty *Routine Skin Exam Skin: Present intact, dry and warm *Routine Neurological Exam Neurological: Present alert, oriented X3, CN II-XII intact and normal speech Comments: Patient describes a 9 out of 10 headache to me that is now only a 2 out of 10 and is still receiving IV acetaminophen for this.. States that she does feel much better with the headache gone and that her throat pain is significantly decreased also Routine Psychiatric Exam Psychiatric: Present normal affect, cooperative, good insight and good judgment Comments: Patient is a very pleasant person who seems a very good mother her son is in the room her is in the room also they all seem to get along very well, find her to be a very cooperative patient, was just concerned about how bad she was feeling before the medication for pain was given H&P: Result Impressions 1. Viral illness or false negative strep exam for sore throat significant headache tachycardia and elevated WBCs without source of infection found Imaging and Cardiology Chest x-ray: Additional comments: No acute findings found chest x-ray perfectly normal Assessment and Plan *Assessment and plan (1) Pharyngitis, acute: Status: Acute Qualifiers: Pharyngitis/tonsillitis etiology: unspecified etiology Qualified Code(s): J02.9 - Acute pharyngitis, unspecified Category: Medical Code(s): J02.9 - Acute pharyngitis, unspecified (2) Elevated WBC count: Status: Acute Qualifiers: Leukocytosis type: leukemoid reaction Qualified Code(s): D72.823 - Leukemoid reaction Category: Medical Code(s): D72.829 - Elevated white blood cell count, unspecified (3) Headache: Status: Acute Qualifiers: Headache chronicity pattern: acute headache Headache type: unspecified Intractability: intractable Qualified Code(s): R51.9 - Headache, unspecified Category: Medical Code(s): R51.9 - Headache, unspecified (4) Tachycardia: Status: Acute Category: Medical Code(s): R00.0 - Tachycardia, unspecified Plan 1. I have talked with the provider in the ER about the patient he was quite concerned of how bad she looked when she came in concerned about not being able to find the source of the infection. Having the white blood cell count greater than 20,000 also with a very significant headache when she got here.. And the fact that her throat was so sore she was having difficulty swallowing. [place] that she needed to be admitted overnight for observation.. With the above data and examining her in the room seeing some improvement with the IV acetaminophen do agree there is a potential that this could be something that may get worse and sending her home may not be the best choice. I decided to admit for further management. She has been receiving fluid IV acetaminophen and will receive a dose of Rocephin before coming up. That way if for some reason there is a false strep negative swab culture would show that but the patient would be treated anyway., Also noting the son elementary school age who had been ill with strep and pinkeye in the last 2-week may have brought home a virus of unknown origin and this may be self-limited. But feel it is prudent to observe her overnight if she has improved a send her home with oral antibiotics in the morning depending on her condition Rounded on patient after nurse practitioner. Personally examined and interviewed patient. Agree with exam findings and care plan as documented. Unclear leukocytosis. Monitor for response to antibiotics. Repeat labs ordered for the morning.
--- NOTE | 2024-09-29 20:31 | PC.NURSE ---
Nurse pasha unable to take report at this time. States she will call back in five minutes.
[2024-09-29 20:53] LABS: Eosinophils % 1 % (0-3); Giant Platelets 1+; Lymphocytes % 11 % (10-50); Monocytes % 9 % (2-9); Neutrophils % 74 % (42-76); Total Cells Counted 100
[2024-09-29 20:54] LABS: Platelet Estimate Normal; RBC Morphology Normal
--- NOTE | 2024-09-29 21:09 | PC.NURSE ---
Addendum entered by KRISTY Stewart 09/29/24 21:10: pt arrived to floor at this time Original Note: pt arrived to floor at this thing
[2024-09-29] MEDS: PANTOPRAZOLE 40MG TABLET 40 MG PO (22:30)
[2024-09-29] MEDS: 0.9 % SODIUM CHLORIDE 1000ML 1,000 ML 100 ML IV (22:30)
[2024-09-30] VITALS: PULSE 90
[2024-09-30] MEDS: KETOROLAC 30MG/ML VIAL 30 MG IV (03:18)
[2024-09-30 04:00] VITALS: BP 105/44; PULSE 89; RESP 14; TEMP 36.6; O2SAT 96; BMI 45.7
--- NOTE | 2024-09-30 04:50 | PC.NURSE ---
Pt. is alert and orientated x 4. Pt. admitted from the ED with sepsis. Pt. had sore throat, headache, dizziness, fatigue and tachycardia. WBC 22.4. Pt. recieved IV antibiotics. Pt. c/o headache overnight.and sore throat. Pt. recieved IV Toradol for headache and than fell asleep. vital signs stable. Personal items and call steven in reach.
[2024-09-30 05:00] VITALS: PULSE 90
[2024-09-30] MEDS: 0.9 % SODIUM CHLORIDE 1000ML 1,000 ML 100 ML IV (06:22)
[2024-09-30 06:28] LABS: Lactic Acid 0.7 mmol/L (0.7-2.1); Magnesium 2.2 mg/dl (1.6-2.3)
[2024-09-30 06:57] LABS: Basophils # 0.1 K/mm3 (0-0.2); Basophils % 0.6 % (0.1-2.0); Eosinophils # 0.2 K/mm3 (0.0-0.4); Eosinophils % 1.5 % (0.1-12.0); Hematocrit 39.4 % (37.0-47.0); Lymphocytes # 2.7 K/mm3 (0.7-4.5); Lymphocytes % 16.5 % (10-50); Mean Corpuscular HGB Conc 33.9 g/dL (31.8-35.4); Mean Corpuscular Hemoglobin 30.2 pg (27.0-31.2); Mean Platelet Volume 7.4 fl (7.4-10.4); Monocytes # 1.1 K/mm3 (0.1-1.0); Monocytes % 6.9 % (1.7-9.3); Neutrophils # 12.2 K/mm3 (1.8-7.8); Neutrophils % 74.6 % (37.0-80.0); Platelet Count 329 K/mm3 (142-424); Red Blood Count 4.43 M/mm3 (4.20-5.40); Red Cell Distribution Width 14.4 % (11.5-17.5); White Blood Count 16.3 K/mm3 (4.8-10.8)
[2024-09-30 07:01] LABS: MANUAL DIFFERENTIAL MANUAL DIFFERENTIAL (MANUAL DIFF)
--- NOTE | 2024-09-30 07:08 | HMH.PHAINT1 ---
Pharmacy Intervention Comments: home medications verified via outpatient pharmacy
[2024-09-30 07:44] VITALS: BP 108/56; PULSE 69; RESP 18; TEMP 36.7; O2SAT 97
[2024-09-30 08:00] VITALS: PULSE 80
--- NOTE | 2024-09-30 09:30 | EXP.DC.SUM ---
General Admission date:: 09/29/24 Discharge date: 09/30/24 HPI HPI HPI: This is a 34-year-old female has come in with her and her elementary school child.. She noted that the child was positive for strep and pinkeye between 1 to 2 weeks ago.. He is now resolved reports no illness. Mother reports today gradually increasing sore throat to the point giving her trouble to swallow. Feeling bad all over with malaise She has come to the ER to be examined., ER provider notes that the throat is red but there is no exudate at this time. But was concerned because the white count was greater than 20,000 heart rate up around 115. Blood pressure was acceptable. Workup did not find source of infection.. Present strep swab was negative culture has been sent. Patient is receiving IV fluids which has helped also IV acetaminophen which she says is helping her sore throat, and her significant headache is now much improved. And heart rate is now 105 after receiving half a liter of saline. ER provider is very concerned that they have not been able to find the source of the infection and with the elevated white count felt she need to be monitored overnight. This is reasonable so I will place her on the floor in observation she will have received a dose of Rocephin I will continue with slow rehydration with normal saline and evaluate the patient in the morning. Hospital Course Hospital Course Hospital Course: Patient admitted for concern for headache, leukocytosis, and suspected infection. Initiated on empiric antibiotics. Overnight, patient did well. [place] better by morning with resolution of headache. White count improved to 16. Symptoms consistent with URI/viral etiology given sore throat and cough. No focal pneumonia on chest imaging. In light of clearly identified bacterial infection, will hold on antibiotics at discharge. Urine not convincing for UTI. Will continue to follow cultures after discharge. Hold on antibiotics at this time. Given her stability on room air, clinical improvement overnight, and feeling better by morning. Stable to discharge home with close follow-up with primary care as an outpatient. Referred to Dr. Snyder for establishment of care. Will continue to follow cultures after discharge. Stable to discharge home. Exam Data for Last 24 hours Vital signs and Labs for Last 24 Hours: Temp Pulse Resp BP Pulse Ox O2 Del Method 98.0 F 69 18 108/56 L 97 Room Air 09/30/24 07:44 09/30/24 07:44 09/30/24 07:44 09/30/24 07:44 09/30/24 07:44 09/30/24 07:44 Laboratory Results - last 24 hr 09/29/24 18:20: SARS-CoV-2 (PCR) Not detected, Influenza A Untype (PCR) Not detected, Influenza Type B (PCR) Not detected, Group A Strep Rapid Negative 09/29/24 18:23: WBC 22.4 H*, RBC 4.99, Hgb 15.2, Hct 45.6, MCV 91.3, MCH 30.5, MCHC 33.4, RDW 14.3, Plt Count 356, MPV 7.0 L, Neut % (Auto) 81.8 H, Lymph % (Auto) 10.6, [place] % (Auto) 5.9, Eos % (Auto) 1.1, Baso % (Auto) 0.6, Neut # (Auto) 18.4 H, Lymph # (Auto) 2.4, [place] # (Auto) 1.3 H, Eos # (Auto) 0.2, Baso # (Auto) 0.1, Total Counted 100, Neutrophils % (Manual) 74, Band Neutrophils % 3.0, Lymphocytes % (Manual) 11, Monocytes % (Manual) 9, Eosinophils % (Manual) 1, Basophils % (Manual) 2.0 H, Platelet Estimate Normal, Giant Platelets 1+, RBC Morphology Normal, Sodium 139, Potassium 4.1, Chloride 103, Carbon Dioxide 28, Anion Gap 12.1, BUN 7, Creatinine 0.90, Estimated Creat Clear 82, Estimated GFR 71, Est GFR ( Amer) 86, Glucose 118 H, Calcium 9.3, Total Bilirubin 0.7, AST 26, ALT 31, Alkaline Phosphatase 131 H, Total Protein 8.1, Albumin 4.3, Globulin 3.8 H, Albumin/Globulin Ratio 1.1, Procalcitonin 0.168, Serum HCG, Qual Negative, Monoscreen Negative 09/29/24 19:08: Urine Color Yellow, Urine Appearance Clear, Urine pH 6.0, Ur Specific [place] >= 1.030, Urine Protein Trace, Urine Glucose (UA) Negative, Urine Ketones 1+, Urine Blood 2+ A, Urine Nitrate Negative, Urine Bilirubin Negative, Urine Urobilinogen 1.0, Ur Leukocyte Esterase Negative, Urine RBC 20-50, Urine WBC 20-50, Ur Squamous Epith Cells 50-100, Urine Bacteria 4+ 09/30/24 06:06: WBC 16.3 H D, RBC 4.43, Hct 39.4, MCV 89.0, MCH 30.2, MCHC 33.9, RDW 14.4, Plt Count 329, MPV 7.4, Neut % (Auto) 74.6, Lymph % (Auto) 16.5, [place] % (Auto) 6.9, Eos % (Auto) 1.5, Baso % (Auto) 0.6, Neut # (Auto) 12.2 H, Lymph # (Auto) 2.7, [place] # (Auto) 1.1 H, Eos # (Auto) 0.2, Baso # (Auto) 0.1, Lactate 0.7, Magnesium 2.2 I & O for Last 24 hours: Intake & Output 09/27/24 09/28/24 09/29/24 09/30/24 23:59 23:59 23:59 23:59 Intake Total 774 / 774 Output Total 0 / 0 Balance 774 / 774 Weight 127.006 kg 129.002 kg Constitutional Constitutional: no acute distress, morbidly obese and cooperative *Routine HEENT Exam Head: Present normocephalic Eye: Present EOMI and PERRL ENT: Present mucous membranes moist *Routine Neck Exam Neck: Present supple; Absent lymphadenopathy *Routine Respiratory Exam Respiratory: Present CTA bilaterally; Absent rhonchi, wheezes or crackles *Routine Cardiovascular Exam Cardiovascular: Present RRR *Routine Abdominal Exam Abdominal: Present soft and normoactive bowel sounds; Absent tenderness *Routine Rectal Exam Patient deferred: visual exam *Routine Exam Patient deferred: external exam *Routine Extremities Exam Extremities: Absent cyanosis, clubbing or edema *Routine Skin Exam Skin: Present warm; Absent rash *Routine Neurological Exam Neurological: Present alert, oriented X3 and moving all extremities; Absent altered mental status Results Data Completed and Pending Labs on day of discharge: Labs from last 24 hours 09/30/24 09/29/24 09/29/24 06:06 19:08 18:23 WBC 16.3 H D 22.4 H* RBC 4.43 4.99 Hgb 15.2 Hct 39.4 45.6 MCV 89.0 91.3 MCH 30.2 30.5 MCHC 33.9 33.4 RDW 14.4 14.3 Plt Count 329 356 MPV 7.4 7.0 L Neut % (Auto) 74.6 81.8 H Lymph % (Auto) 16.5 10.6 [place] % (Auto) 6.9 5.9 Eos % (Auto) 1.5 1.1 Baso % (Auto) 0.6 0.6 Neut # (Auto) 12.2 H 18.4 H Lymph # (Auto) 2.7 2.4 [place] # (Auto) 1.1 H 1.3 H Eos # (Auto) 0.2 0.2 Baso # (Auto) 0.1 0.1 Total Counted 100 Neutrophils % (Manual) 74 Band Neutrophils % 3.0 Lymphocytes % (Manual) 11 Monocytes % (Manual) 9 Eosinophils % (Manual) 1 Basophils % (Manual) 2.0 H Platelet Estimate Normal Giant Platelets 1+ RBC Morphology Normal Sodium 139 Potassium 4.1 Chloride 103 Carbon Dioxide 28 Anion Gap 12.1 BUN 7 Creatinine 0.90 Estimated Creat Clear 82 Estimated GFR 71 Est GFR ( Amer) 86 Glucose 118 H Lactate 0.7 Calcium 9.3 Magnesium 2.2 Total Bilirubin 0.7 AST 26 ALT 31 Alkaline Phosphatase 131 H Total Protein 8.1 Albumin 4.3 Globulin 3.8 H Albumin/Globulin Ratio 1.1 Procalcitonin 0.168 Serum HCG, Qual Negative Urine Color Yellow Urine Appearance Clear Urine pH 6.0 Ur Specific [place] >= 1.030 Urine Protein Trace Urine Glucose (UA) Negative Urine Ketones 1+ Urine Blood 2+ A Urine Nitrate Negative Urine Bilirubin Negative Urine Urobilinogen 1.0 Ur Leukocyte Esterase Negative Urine RBC 20-50 Urine WBC 20-50 Ur Squamous Epith Cells 50-100 Urine Bacteria 4+ SARS-CoV-2 (PCR) Monoscreen Negative Influenza A Untype (PCR) Influenza Type B (PCR) Group A Strep Rapid 09/29/24 18:20 WBC RBC Hgb Hct MCV MCH MCHC RDW Plt Count MPV Neut % (Auto) Lymph % (Auto) [place] % (Auto) Eos % (Auto) Baso % (Auto) Neut # (Auto) Lymph # (Auto) [place] # (Auto) Eos # (Auto) Baso # (Auto) Total Counted Neutrophils % (Manual) Band Neutrophils % Lymphocytes % (Manual) Monocytes % (Manual) Eosinophils % (Manual) Basophils % (Manual) Platelet Estimate Giant Platelets RBC Morphology Sodium Potassium Chloride Carbon Dioxide Anion Gap BUN Creatinine Estimated Creat Clear Estimated GFR Est GFR ( Amer) Glucose Lactate Calcium Magnesium Total Bilirubin AST ALT Alkaline Phosphatase Total Protein Albumin Globulin Albumin/Globulin Ratio Procalcitonin Serum HCG, Qual Urine Color Urine Appearance Urine pH Ur Specific [place] Urine Protein Urine Glucose (UA) Urine Ketones Urine Blood Urine Nitrate Urine Bilirubin Urine Urobilinogen Ur Leukocyte Esterase Urine RBC Urine WBC Ur Squamous Epith Cells Urine Bacteria SARS-CoV-2 (PCR) Not detected Monoscreen Influenza A Untype (PCR) Not detected Influenza Type B (PCR) Not detected Group A Strep Rapid Negative DS: Diagnosis Discharge Diagnosis (1) Pharyngitis, acute: Status: Acute Code(s): J02.9 - Acute pharyngitis, unspecified Qualifiers: Pharyngitis/tonsillitis etiology: unspecified etiology Qualified Code(s): J02.9 - Acute pharyngitis, unspecified (2) Elevated WBC count: Status: Acute Code(s): D72.829 - Elevated white blood cell count, unspecified Qualifiers: Leukocytosis type: leukemoid reaction Qualified Code(s): D72.823 - Leukemoid reaction (3) Headache: Status: Acute Code(s): R51.9 - Headache, unspecified Qualifiers: Headache chronicity pattern: acute headache Headache type: unspecified Intractability: intractable Qualified Code(s): R51.9 - Headache, unspecified (4) Tachycardia: Status: Acute Code(s): R00.0 - Tachycardia, unspecified (5) Obesity, morbid, BMI 40.0-49.9: Status: Acute Code(s): E66.01 - Morbid (severe) obesity due to excess calories Meds Home Medications and Allergies Home Medications ?Medication ?Instructions ?Recorded ?Confirmed ?Type melatonin 5 mg tablet 5 mg PO HSP PRN Sleep 09/29/24 09/30/24 History acetaminophen 325 mg tablet 650 mg (2 x 325 mg) PO Q4HP PRN 09/30/24 Rx Fever Or Mild Pain (1-3) #0 tabs New Prescriptions to Start Prescriptions: Allergies Allergy/AdvReac Type Severity Reaction Status Date / Time No Known Allergies Allergy Verified 07/20/22 19:40 Discharge Plan Disposition Patient Disposition: Home, Self-Care Follow up Plan Follow up with: Shade Snyder MD [Staff Physician] - 10/13/24 2:00 pm Prescriptions/Medication Reconciliation: New acetaminophen 325 mg Tablet 650 mg PO Q4HP PRN (Reason: Fever Or Mild Pain (1-3)) Qty: 0 0RF Continued melatonin 5 mg Tablet 5 mg PO HSP PRN (Reason: Sleep) Problem Reconciliation Problems Reviewed?: Yes Patient Discharge Instructions ACTIVITY: Continue current activity DIET: continue same diet Additional Instructions: Symptomatic treatment for your viral symptoms including Tylenol or ibuprofen as needed every 4-6 hours for pain or headache. DayQuil or NyQuil as needed per instructions on the bottle for URI symptoms. Patient Instructions: DI for Pharyngitis/Tonsillopharyngitis -- Adult Print Language: Korean Providers Primary Care Provider: Provider,Referral Admit Provider: Kayode Chambers Attending Provider: Kayode Chambers
[2024-09-30] MEDS: CEFTRIAXONE 1 GM 1 GM in 0.9 % SODIUM CHLORIDE 50 ML IV (09:51)
[2024-09-30 09:57] LABS: Lymphocytes % 23 % (10-50); Monocytes % 4 % (2-9); Neutrophils % 73 % (42-76); Platelet Estimate Normal; RBC Morphology Normal; Total Cells Counted 100
[2024-09-30 12:10] LABS: Hemoglobin 13.4 g/dL (12.2-16.2)
--- NOTE | 2024-10-01 10:27 | SW/DCPLANNER ---
Called patient and no answer x1. Jessika Espinoza
--- NOTE | 2024-10-02 10:33 | SW/DCPLANNER ---
Called patient x2. No aswer each time and unable to leave a message. Jessika LIMON [employer]
== END 2024-09-30 10:36 | disposition home or self-care (01) ==
LOC: ER 19:51 → 2ND 20:20
PROVIDERS: Nurse Practitioner Family; Physician Assistant; Admitting Provider Internal Medicine Adolescent Medicine; Emergency Provider Student in an Organized Health Care Education/Training Program; Visit Provider Internal Medicine Adolescent Medicine
DX: J02.9 Acute pharyngitis, unspecified (principal); R51.9 Headache, unspecified; E66.01 Morbid (severe) obesity due to excess calories; Z68.42 Body mass index [BMI] 45.0-49.9, adult; R00.0 Tachycardia, unspecified
CPT/HCPCS: 36415; 71046; 80053; 81001; 83605; 83735; 84145; 84703; 85007; 85025; 85027; 86318; 87040; 87086; 87430; 87636; 93005; 99285; G0378; J0131; J0456; J0696; J1885; J7030; J7050